=== PATIENT | female | born 2000 | race Caucasian/White ===

== ENCOUNTER 2024-02-12 11:19 | Emergency (ER) | payer BC ==
[~2024-02-12] VITALS: Ht 162.6 cm; Wt 75.9 kg
[2024-02-12] MEDS ORDERED: CYCLOBENZAPRINE5 MG PO (11:54)
[2024-02-12] MEDS: IBUPROFEN 600 MG TAB PO ONE (12:41)
[2024-02-12] MEDS ORDERED: ZOLOFT50 MG PO (12:56)
[2024-02-12 13:29] VITALS: PULSE 78; RESP 16; TEMP 98.2; O2SAT 100
== END 2024-02-12 14:30 | disposition home or self-care (01) ==
LOC: FSED 11:27
DX: S16.1XXA Strain of muscle, fascia and tendon at neck level, initial encounter (principal); S29.012A Strain of muscle and tendon of back wall of thorax, initial encounter; S39.012A Strain of muscle, fascia and tendon of lower back, initial encounter; S63.592A Other specified sprain of left wrist, initial encounter; V43.52XA Car driver injured in collision with other type car in traffic accident, initial encounter; Y92.488 Other paved roadways as the place of occurrence of the external cause; F41.9 Anxiety disorder, unspecified; F32.A Depression, unspecified
CPT/HCPCS: 72040; 72070; 72100; 72170; 81025; 99283